=== PATIENT | male | born 1945 | race Caucasian/White ===

== ENCOUNTER → 2017-04-17 | Outpatient (CLI) | payer MEDICARE, BC ==
--- NOTE | 2017-04-18 08:11 | US ---
EXAMINATION TYPE: US venous doppler duplex LE LT DATE OF EXAM: 04/17/2017 4:20 PM COMPARISON: NONE CLINICAL HISTORY: Pain and Swelling Lt Lower Limb M79.662 R22.42. History of pulmonary embolism, ro ent currently taking blood thinners SIDE PERFORMED: Left TECHNIQUE: The lower extremity deep venous system is examined utilizing real time linear array sonog nicola with graded compression, doppler sonography and color-flow sonography. VESSELS IMAGED: External Iliac Vein (EIV) Common Femoral Vein Deep Femoral Vein Greater Saphenous Vein * Femoral Vein Popliteal Vein Small Saphenous Vein * Proximal Calf Veins (* superficial vessels) Left Leg: Negative for DVT IMPRESSION: Left lower extremity negative for deep venous thrombosis based on ultrasound findings.
== END | disposition home or self-care (01) ==
LOC: RADUSWWP 15:59
PROVIDERS: ATTEND Internal Medicine
DX: M79.662 Pain in left lower leg (principal); R22.42 Localized swelling, mass and lump, left lower limb

== ENCOUNTER → 2017-04-25 | Outpatient (CLI) | payer MEDICARE, BC ==
--- NOTE | 2017-04-25 17:02 | CT ---
EXAMINATION TYPE: CT abdomen pelvis wo con DATE OF EXAM: 04/25/2017 COMPARISON: 10/07/2012 HISTORY: Generalized abdominal pain with nausea and vomiting x [address] DLP: 397.60 mGycm Automated exposure control for dose reduction was used. TECHNIQUE: Helical acquisition of images was performed from the lung bases through the pelvis. FINDINGS: Lung bases are clear. There is no pleural effusion. Liver shows no focal defect. Spleen appears normal. There is no sign of a pancreatic mass. Bile ducts are not dilated. Gallbladder appears absent. Inferior vena cava filter is noted. There is no adrenal mass. Kidneys have normal size and contour. There is no hydronephrosis. There is no retroperitoneal adenopathy. There is a faint 2 mm calcification in the posterior left kidney. There is no ascites. Bladder distends smoothly. I see no intestinal wall thickening. There are no dil ated loops. Appendix is not seen. There is no sign of appendicitis. I see no bony destructive process . IMPRESSION: ATHEROSCLEROTIC VASCULAR DISEASE. NO EVIDENCE OF RENAL OBSTRUCTION. SMALL NONOBSTRUCTING LEFT RENAL C ALCULUS. NO ADVERSE CHANGE COMPARED TO OLD EXAM.
== END | disposition home or self-care (01) ==
LOC: RADCTMAIN 15:59
PROVIDERS: ATTEND Internal Medicine Hematology & Oncology
DX: N20.0 Calculus of kidney (principal); I70.90 Unspecified atherosclerosis
CPT/HCPCS: 74176

== ENCOUNTER → 2018-06-05 | Outpatient (CLI) | payer MEDICARE, BC ==
[2018-06-05 13:39] LABS: Appearance,Urine Clear (Clear); Bilirubin,Urine Negative (Negative); Blood,Urine Trace (Negative); Color,Urine Light Yellow; Glucose,Urine (UA) Negative (Negative); Ketones,Urine Negative (Negative); Leukocyte Esterase,Urine Negative (Negative); Nitrite,Urine Negative (Negative); PH, Urine 5.5 (5.0-8.0); Protein,Urine Negative (Negative); RBC,Urine 1 /hpf (0-5); Specific Gravity,Urine 1.008 (1.001-1.035); Urobilinogen,Urine <2.0 mg/dL (<2.0); WBC,Urine <1 /hpf (0-5)
[2018-06-05 13:57] LABS: HCT 41.8 % (39.0-53.0); HGB 13.3 gm/dL (13.0-17.5); Hypochromasia Moderate; MCH 30.3 pg (25.0-35.0); MCHC 31.9 g/dL (31.0-37.0); MCV 94.9 fL (80.0-100.0); Poikilocytosis Slight; RDW 15.8 % (11.5-15.5); WBC 5.3 k/uL (3.8-10.6)
[2018-06-05 13:58] LABS: Platelet Count 92 k/uL (150-450)
[2018-06-05 19:05] LABS: Iron Saturation 19.22 (15.00-50.00)
[2018-06-05 19:12] LABS: Vitamin D 25 Hydroxy 77.7 ng/mL (30.0-100.0)
[2018-06-05 19:46] LABS: Parathyroid Hormone Intact 89.3 pg/mL (14.0-72.0)
[2018-06-05 19:54] LABS: Albumin 3.8 g/dL (3.80-4.90); Albumin/Globulin Ratio 1.9 (1.20-2.10); Anion Gap 7.2 mmol/L (4.00-12.00); Calcium 8.9 mg/dL (8.7-10.3); Carbon Dioxide 23.8 mmol/L (21.6-31.8); Magnesium 1.8 mg/dL (1.5-2.4); Phosphorus 3.7 mg/dL (2.4-5.1); Potassium 5.2 mmol/L (3.5-5.5); Total Bilirubin 0.3 mg/dL (0.3-1.2); Total Protein 5.8 g/dL (6.2-8.2)
[2018-06-05 21:59] LABS: Hemoglobin A1C 5.6 % (4.0-6.0)
== END | disposition home or self-care (01) ==
LOC: LABWHC1 12:23
PROVIDERS: ATTEND Nurse Practitioner Family
DX: D50.9 Iron deficiency anemia, unspecified (principal); I12.9 Hypertensive chronic kidney disease with stage 1 through stage 4 chronic kidney disease, or unspecified chronic kidney disease; E11.22 Type 2 diabetes mellitus with diabetic chronic kidney disease; N18.3 Chronic kidney disease, stage 3 (moderate); N25.81 Secondary hyperparathyroidism of renal origin; E11.21 Type 2 diabetes mellitus with diabetic nephropathy; N39.0 Urinary tract infection, site not specified; R25.1 Tremor, unspecified; M10.00 Idiopathic gout, unspecified site; E03.9 Hypothyroidism, unspecified; E55.9 Vitamin D deficiency, unspecified; F12.19 Cannabis abuse with unspecified cannabis-induced disorder
CPT/HCPCS: 36415; 80053; 81001; 82306; 82728; 83036; 83540; 83550; 83735; 83970; 84100; 84443; 84550; 85027

== ENCOUNTER → 2018-09-07 | Outpatient (CLI) | payer OTHER ==
[2018-09-07 15:47] LABS: Appearance,Urine Clear (Clear); Bilirubin,Urine Negative (Negative); Blood,Urine Trace (Negative); Color,Urine Light Yellow; Glucose,Urine (UA) Negative (Negative); Ketones,Urine Negative (Negative); Leukocyte Esterase,Urine Negative (Negative); Nitrite,Urine Negative (Negative); Protein,Urine Negative (Negative); RBC,Urine 3 /hpf (0-5); Specific Gravity,Urine 1.008 (1.001-1.035); Urobilinogen,Urine <2.0 mg/dL (<2.0)
[2018-09-07 15:58] LABS: Anisocytosis Slight; Basophils % (A) 1 %; Eosinophils # (A) 0.3 k/uL (0-0.7); Eosinophils % (A) 8 %; HCT 33.2 % (39.0-53.0); HGB 10.7 gm/dL (13.0-17.5); Hypochromasia Slight; Lymphocytes # (A) 1.2 k/uL (1.0-4.8); Lymphocytes % (A) 28 %; MCH 30.7 pg (25.0-35.0); MCHC 32.3 g/dL (31.0-37.0); Mean Platelet Volume 6.9; Monocytes # (A) 0.2 k/uL (0-1.0); Monocytes % (A) 5 %; Neutrophils # (A) 2.3 k/uL (1.3-7.7); Neutrophils % (A) 56 %; Platelet Count 115 k/uL (150-450); RDW 17.4 % (11.5-15.5); WBC 4.1 k/uL (3.8-10.6)
[2018-09-08 02:16] LABS: Iron Saturation 26.69 (15.00-50.00)
[2018-09-08 02:23] LABS: Albumin 3.8 g/dL (3.80-4.90); Anion Gap 8.9 mmol/L (4.00-12.00); Calcium 8.6 mg/dL (8.7-10.3); Carbon Dioxide 21.1 mmol/L (21.6-31.8); Magnesium 1.9 mg/dL (1.5-2.4); Phosphorus 3.7 mg/dL (2.4-5.1); Potassium 4.8 mmol/L (3.5-5.5); Uric Acid 6.3 mg/dL (3.7-8.7)
[2018-09-08 02:33] LABS: Parathyroid Hormone Intact 133.9 pg/mL (14.0-72.0)
[2018-09-08 04:25] LABS: Creatinine,Urine Random 48.4 mg/dL
[2018-09-08 04:46] LABS: Total Protein,Urine Random 15.1 mg/dL (0.0-13.5)
== END ==
LOC: LABWHC1 13:58
PROVIDERS: ATTEND Internal Medicine Nephrology
DX: N25.81 Secondary hyperparathyroidism of renal origin (principal); N39.0 Urinary tract infection, site not specified; M10.9 Gout, unspecified; N18.4 Chronic kidney disease, stage 4 (severe); D63.1 Anemia in chronic kidney disease; R80.9 Proteinuria, unspecified
CPT/HCPCS: 36415; 80048; 81001; 82040; 82306; 82570; 82728; 83540; 83550; 83735; 83970; 84100; 84156; 84550; 85025

== ENCOUNTER 2019-02-28 14:48 | Emergency (ER) | payer BC, MEDICARE, OTHER ==
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
[2019-02-28 15:56] LABS: INR 4.1 (<1.2); Partial Thromboplastin Time 58.3 sec (22.0-30.0); Prothrombin Time 39.1 sec (9.0-12.0)
--- NOTE | 2019-02-28 16:07 | US ---
EXAMINATION TYPE: US venous doppler duplex LE LT DATE OF EXAM: 02/28/2019 3:54 PM COMPARISON: NONE CLINICAL HISTORY: Pain. Left leg is hard and swollen. SIDE PERFORMED: Left TECHNIQUE: The lower extremity deep venous system is examined utilizing real time linear array sonog nicola with graded compression, doppler sonography and color-flow sonography. VESSELS IMAGED: External Iliac Vein (EIV) Common Femoral Vein Deep Femoral Vein Greater Saphenous Vein * Femoral Vein Popliteal Vein Small Saphenous Vein * Proximal Calf Veins (* superficial vessels) Patient is on coumadin and has a rey filter. Left Leg: No evidence for DVT. In the distal FV, the flow is pulsatile. The vessel will not compress. There is a large complex area just anterior to the vessels without flow that measures 8.1 x 4.2 x 4.2 cm. IMPRESSION: The examination appears negative for deep venous thrombosis within the left lower extremi ty however there is incomplete compression of the left femoral vein distally as there is a complex fl uid collection anterior to this measuring up to 8.1 x 4.2 x 4.2 cm. This is an avascular fluid collec tion and favored to represent,. However if there is no recent history of trauma or if this is enlargi ng clinically MRI with contrast would be recommended to exclude bleeding sarcoma.
--- NOTE | 2019-02-28 16:16 | XR ---
EXAMINATION TYPE: XR femur LT DATE OF EXAM: 02/28/2019 CLINICAL HISTORY: Left femur pain with left lower extremity pain and swelling TECHNIQUE: Two views of the left femur are obtained. COMPARISON: None FINDINGS: There is no acute fracture or dislocation seen in the left femur. The left hip and knee j oints appear aligned. There is mild left femoral acetabular arthropathy with cephalad joint space latoya rowing and acetabular roof sclerosis. Arthroplasty of the left knee is seen. Arthroplasty remains ali gned. The overlying soft tissue appears unremarkable. IMPRESSION: There is no acute fracture or dislocation in the left femur.
--- NOTE | 2019-02-28 16:20 | XR ---
EXAMINATION TYPE: XR tibia fibula LT DATE OF EXAM: 02/28/2019 CLINICAL HISTORY: Left lower extremity pain TECHNIQUE: Two views of the left leg are obtained. COMPARISON: None. FINDINGS: There is no acute fracture or dislocation seen in the left tibia or fibula. There is a tot al left knee arthroplasty that remains aligned. Mild heterotopic ossification is seen. There is perio steal reaction of the diaphysis of the tibia laterally. Old fracture deformity of the distal fibula. Mild diffuse soft tissue swelling. Small heel spur of the calcaneus. The overlying soft tissue appea rs unremarkable. IMPRESSION: 1. No acute fracture or dislocation seen in the left tibia or fibula. 2. Old fracture forming the distal left fibula is seen. Additionally there is periosteal reaction phillip ng the diaphysis of the lateral left fibula. This may also be posttraumatic in sequela of prior injur y. Other considerations are for chronic infection such as osteomyelitis (less likely given the long s egment involvement) or much less likely neoplasm.
[2019-02-28 17:28] VITALS: BP 101/62; PULSE 76; RESP 18; TEMP 97.8
== END 2019-02-28 17:28 | disposition home or self-care (01) ==
LOC: EC 14:48
DX: S80.12XA Contusion of left lower leg, initial encounter (principal); R79.1 Abnormal coagulation profile; I25.10 Atherosclerotic heart disease of native coronary artery without angina pectoris; E78.5 Hyperlipidemia, unspecified; I12.9 Hypertensive chronic kidney disease with stage 1 through stage 4 chronic kidney disease, or unspecified chronic kidney disease; N18.3 Chronic kidney disease, stage 3 (moderate); Z87.81 Personal history of (healed) traumatic fracture; Z89.512 Acquired absence of left leg below knee; Z88.8 Allergy status to other drugs, medicaments and biological substances; Z91.048 Other nonmedicinal substance allergy status; Z79.01 Long term (current) use of anticoagulants; Z79.82 Long term (current) use of aspirin; Z79.890 Hormone replacement therapy; Z79.899 Other long term (current) drug therapy; Z86.711 Personal history of pulmonary embolism; Z96.652 Presence of left artificial knee joint; Z98.1 Arthrodesis status; Z91.81 History of falling; X58.XXXA Exposure to other specified factors, initial encounter
CPT/HCPCS: 36415; 85610; 85730; 99284

== ENCOUNTER 2020-06-13 15:28 | Emergency (ER) | payer OTHER ==
[2020-06-13 15:34] VITALS: RESP 18
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
[2020-06-13 16:31] LABS: INR 2.5 (<1.2); Partial Thromboplastin Time 39.1 sec (22.0-30.0); Prothrombin Time 24.8 sec (9.0-12.0)
--- NOTE | 2020-06-13 16:55 | CT ---
EXAMINATION TYPE: CT brain alexa aquino con DATE OF EXAM: 06/13/2020 COMPARISON: 06/10/2018. HISTORY: Fall with facial brusing. CT DLP: 1210.6 mGycm Automated exposure control for dose reduction was used. TECHNIQUE: CT scan of the head and cervical spine are performed without contrast. FINDINGS: There is no acute intracranial hemorrhage, mass effect, or midline shift identified. The ventricles and sulci are within normal limits in size. The globes are intact and the visualized sin uses are clear. No calvarial fracture. There is mild right frontal scalp hematoma. Cervical spine is visualized in its entirety from C1 through upper thoracic levels and demonstrates s atisfactory alignment without evidence of acute fracture or dislocation. Prevertebral soft tissue ap pears within normal limits. The C1-C2 articulation is unremarkable. Prior C3-C6 ACDF is noted. Sakshi re C6-T1 spondylosis seen. IMPRESSION: 1. There is no acute fracture or dislocation evident in the cervical spine. 2. No acute intracranial hemorrhage, mass effect, or midline shift is seen. 3. Right frontal scalp hematoma.
--- NOTE | 2020-06-13 16:59 | CT ---
EXAMINATION TYPE: CT facial bones wo con DATE OF EXAM: 06/13/2020 COMPARISON: None available. HISTORY: Fall with facial brusing. CT DLP: 1210.6 mGycm Automated exposure control for dose reduction was used. TECHNIQUE: CT scan of the facial bones is performed without contrast, axial images are obtained, alfred nal reformatted images are also reviewed. FINDINGS: There is no acute fracture or dislocation of the middle osseous structures. The maxilla, ma ndible, zygomatic arches and pterygoid plates are grossly intact. The bilateral orbits are also gross ly intact. The paranasal sinuses, sinuses are adequately aerated. There is mild right frontal scalp hematoma. The remaining soft tissues are otherwise unremarkable. IMPRESSION: No acute fracture of the facial bones.
[2020-06-13] MEDS ORDERED: IBUPROFEN 600 MG TAB PO STA (17:05)
[2020-06-13 17:43] VITALS: BP 130/66; PULSE 65; TEMP 97
== END 2020-06-13 17:43 | disposition home or self-care (01) ==
LOC: EC 15:28
DX: S00.83XA Contusion of other part of head, initial encounter (principal); S06.0X9A Concussion with loss of consciousness of unspecified duration, initial encounter; I12.9 Hypertensive chronic kidney disease with stage 1 through stage 4 chronic kidney disease, or unspecified chronic kidney disease; N18.30 Chronic kidney disease, stage 3 unspecified; E78.5 Hyperlipidemia, unspecified; Z79.899 Other long term (current) drug therapy; Z79.82 Long term (current) use of aspirin; Z79.890 Hormone replacement therapy; Z79.01 Long term (current) use of anticoagulants; Z91.09 Other allergy status, other than to drugs and biological substances; Z88.8 Allergy status to other drugs, medicaments and biological substances; Z89.511 Acquired absence of right leg below knee; Z86.711 Personal history of pulmonary embolism; Z96.652 Presence of left artificial knee joint; W01.198A Fall on same level from slipping, tripping and stumbling with subsequent striking against other object, initial encounter; Y93.01 Activity, walking, marching and hiking; Y92.009 Unspecified place in unspecified non-institutional (private) residence as the place of occurrence of the external cause
CPT/HCPCS: 36415; 70450; 70486; 72125; 85610; 85730; 99284

== ENCOUNTER 2021-01-03 15:17 | Inpatient (IN) | payer OTHER, MEDICARE ==
[2021-01-03] MEDS ORDERED: SODIUM CHLORIDE 0.9% 1,000 ML IV STA (15:25)
[2021-01-03 15:31] LABS: Glucose,Whole Blood 151 mg/dL (75-99)
[2021-01-03 15:44] LABS: Anisocytosis Slight; Appearance,Urine Clear (Clear); Basophils % (A) 1 %; Bilirubin,Urine Negative (Negative); Blood,Urine Negative (Negative); Color,Urine Colorless; Eosinophils # (A) 0.3 k/uL (0-0.7); Eosinophils % (A) 6 %; Glucose,Urine (UA) Negative (Negative); HCT 27.9 % (39.0-53.0); HGB 9.4 gm/dL (13.0-17.5); Ketones,Urine Negative (Negative); Leukocyte Esterase,Urine Negative (Negative); Lymphocytes # (A) 1.3 k/uL (1.0-4.8); Lymphocytes % (A) 24 %; MCH 32.6 pg (25.0-35.0); MCHC 33.6 g/dL (31.0-37.0); MCV 96.9 fL (80.0-100.0); Macrocytosis Slight; Mean Platelet Volume 6.8; Monocytes # (A) 0.3 k/uL (0-1.0); Monocytes % (A) 6 %; Neutrophils # (A) 3.3 k/uL (1.3-7.7); Neutrophils % (A) 62 %; Nitrite,Urine Negative (Negative); Platelet Count 125 k/uL (150-450); Protein,Urine Negative (Negative); RBC 2.88 m/uL (4.30-5.90); RDW 16.5 % (11.5-15.5); Specific Gravity,Urine 1.007 (1.001-1.035); Urobilinogen,Urine <2.0 mg/dL (<2.0); WBC 5.3 k/uL (3.8-10.6)
[2021-01-03 15:54] LABS: Amphetamine Screen,Urine Not Detected (NotDetected); Barbiturate Screen,Urine Not Detected (NotDetected); Benzodiazepines Screen,Urine Detected (NotDetected); Cocaine Screen,Urine Not Detected (NotDetected); Methadone Screen, Urine Not Detected (NotDetected); Opiate Screen,Urine Not Detected (NotDetected); Oxycodone Screen, Urine Not Detected (NotDetected); Phencyclidine Screen,Urine Not Detected (NotDetected); Tricyclic Antidepressant,Urine Not Detected (NotDetected); Urn Cannabinoid Scrn Not Detected (NotDetected)
[2021-01-03 15:55] LABS: INR 2.3 (<1.2); Prothrombin Time 22.5 sec (9.0-12.0)
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
--- NOTE | 2021-01-03 16:15 | CT ---
EXAMINATION TYPE: CT brain alexa wo con DATE OF EXAM: 01/03/2021 COMPARISON: 06/13/2020 HISTORY: falls CT DLP: 1480.1 mGycm, Automated exposure control for dose reduction was used. CONTRAST: Patient injected with 0 mL of Isovue 300. CT of the brain is performed utilizing 3 mm thick sections through the posterior fossa and 3 mm thick sections through the remaining calvarium. Study is performed within 24 hours of arrival to the hospital. No abnormal hyperdensity is present to suggest an acute intracranial hemorrhage. No mass lesion is evident. No acute infarcts are evident. Ventricles and sulci are appropriate for the patient age. Paranasal sinuses and mastoid air cells within the [id number] are clear. IMPRESSIONS: 1. No acute intracranial process CT brain CT cervical spine. COMPARISON: None CT of the cervical spine is performed in the axial plane at 2 mm thick sections. Reconstructed image s in the coronal, and sagittal plane are reviewed on the computer. No acute fractures are evident. Vertebral body alignment is straightened. Anterior for fusion is present C3-C6. Advanced degenerative disc changes are present C6-7 and C7-T1. Vertebral body heights are preserved. Anterior vertebral body spurring is present see 6 C7 No spinal canal stenosis is evident. No neural foraminal stenosis is evident. IMPRESSIONS: 1. No acute osseous abnormality is evident. Postsurgical changes from anterior fusion. Advanced degen erative disc changes are in the lower cervical spine. Findings are stable over the interval.
[2021-01-03 16:18] LABS: ALT 16 U/L (4-49); AST 24 U/L (17-59); African American GFR (CKD) 17 (>60 ml/min/1.73 sqM); Albumin 3.5 g/dL (3.5-5.0); Alkaline Phosphatase 62 U/L (38-126); Anion Gap 10 mmol/L; Blood Urea Nitrogen 81 mg/dL (9-20); Calcium 8.8 mg/dL (8.4-10.2); Carbon Dioxide 20 mmol/L (22-30); Chloride 111 mmol/L (98-107); Glucose 126 mg/dL (74-99); Non-African American GFR(CKD) 15 (>60 ml/min/1.73 sqM); Sodium 141 mmol/L (137-145); Total Bilirubin 0.2 mg/dL (0.2-1.3); Total Protein 5.8 g/dL (6.3-8.2)
[2021-01-03] MEDS ORDERED: SODIUM CHLORIDE 0.9% 1,000 ML IV ONE (16:21)
[2021-01-03 16:23] LABS: Alcohol <10 mg/dL
[2021-01-03] MEDS ORDERED: NALOXONE 0.4 MG/ML 1 ML VIAL IV PRN (17:05)
[2021-01-03] MEDS: SODIUM CHLORIDE 0.9% 1,000 ML IV SCH (17:12)
--- NOTE | 2021-01-03 17:38 | XR ---
EXAMINATION TYPE: XR chest 1V portable DATE OF EXAM: 01/03/2021 COMPARISON: 10/04/2019 HISTORY: Trauma. Pain. TECHNIQUE: Single view FINDINGS: There is no heart failure nor confluent pneumonic infiltrate. Costophrenic angles are clear . There are no hilar masses. Thoracic aorta is atheromatous. There are chest leads. IMPRESSION: No active cardiopulmonary disease. No change.
[2021-01-04] MEDS ORDERED: NITROGLYCERIN SL TABS 0.4 MG TAB SUBLINGUAL PRN (01:10)
[2021-01-04] MEDS ORDERED: ALBUTEROL NEBULIZED 2.5 MG/3 ML INHALATION PRN (01:10)
[2021-01-04] MEDS ORDERED: lisinopriL 5 MG TAB PO SCH (02:00)
[2021-01-04] MEDS: ASPIRIN 81 MG PO SCH ×2 (02:17→22:53)
[2021-01-04] MEDS: DOCUSATE 100 MG CAP PO SCH ×2 (02:17→22:53)
[2021-01-04] MEDS: MULTIVITAMINS, THERA 1 EACH TAB PO SCH ×2 (02:17→22:53)
[2021-01-04] MEDS: amLODIPine 5 MG TAB PO SCH ×2 (02:17→20:58)
[2021-01-04] MEDS: METOPROLOL TARTRATE 50 MG TAB PO SCH ×3 (02:18→22:57)
[2021-01-04] MEDS: PANTOPRAZOLE 40 MG TABLET PO SCH ×3 (02:18→22:55)
[2021-01-04] MEDS: MIRTAZAPINE 15 MG TAB PO SCH ×2 (02:18→22:55)
[2021-01-04] MEDS: lamoTRIgine 100 MG TAB PO SCH ×4 (02:19→22:56)
[2021-01-04] MEDS: ALPRAZolam 0.5 MG TAB PO SCH ×5 (02:21→22:56)
[2021-01-04] MEDS: WARFARIN 5 MG TAB PO SCH ×2 (02:21→17:22)
[2021-01-04] MEDS: SODIUM CHLORIDE 0.9% 1,000 ML IV SCH ×3 (02:41→12:40)
[2021-01-04] MEDS: LEVOTHYROXINE 25 MCG TAB PO SCH (07:09)
[2021-01-04] MEDS: allopurinoL 100 MG TAB PO SCH ×2 (07:09→17:22)
[2021-01-04] MEDS ORDERED: NON FORMULARY DRUG (Omega-3 Fatty Acids [Omega-3] 1,000 MG Capsule) PO SCH (08:00)
[2021-01-04] MEDS ORDERED: FUROSEMIDE 40 MG TAB PO SCH (08:00)
[2021-01-04] MEDS: SYMBICORT 160-4.5 MCG INHALER INHALATION SCH ×2 (08:39→17:57)
[2021-01-04] MEDS: PROPRANOLOL 20 MG TAB PO SCH ×3 (08:55→17:22)
[2021-01-04] MEDS: DIGOXIN 125 MCG TAB PO SCH (08:55)
[2021-01-04] MEDS ORDERED: DARBEPOETIN ALFA 60 MCG/0.3 ML SYRINGE SQ SCH (09:00)
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
[2021-01-04] MEDS: EZETIMIBE 10 MG TAB PO SCH (12:39)
[2021-01-04] MEDS: SODIUM BICARBONATE TAB 650 MG TAB PO SCH ×2 (12:39→20:58)
[2021-01-04] MEDS: ISOSORBIDE MONONITRATE ER 60 MG TAB.ER.24H PO SCH (12:39)
[2021-01-04] MEDS: DOXAZOSIN 2 MG TAB PO SCH (12:39)
--- NOTE | 2021-01-04 13:23 | US ---
EXAMINATION TYPE: US kidneys/renal and bladder DATE OF EXAM: 01/04/2021 COMPARISON: CT abdomen and pelvis April 25, 2017 CLINICAL HISTORY: hubert. EXAM MEASUREMENTS: Right Kidney: 11.4 x 4.2 x 4.1 cm Left Kidney: 11.1 x 5.6 x 4.5cm Technically difficult due to overlying bowel gas/rib shadows. Somewhat limited visualization. Right Kidney: wnl Left Kidney: cyst measuring 0.9 x 0.9 x 1.0 cm Bladder: wnl There is no evidence for hydronephrosis at this point in time. No nephrolithiasis is seen. No kyaw rning solid or cystic masses are identified on images saved. The urinary bladder is anechoic. Bilat eral ureteral jets are not seen. Cortical thinning left kidney. IMPRESSION: No hydronephrosis is noted bilaterally.
--- NOTE | 2021-01-04 14:04 | US ---
EXAMINATION TYPE: US carotid duplex BILAT DATE OF EXAM: 01/04/2021 COMPARISON: NONE CLINICAL HISTORY: syncope. dizziness EXAM MEASUREMENTS: RIGHT: Peak Systolic Velocity (PSV) cm/sec ----- Right CCA: 73.2 ----- Right ICA: 92.2 ----- Right ECA: 274.5 ICA/CCA ratio: 1.3 RIGHT: End Diastole cm/sec ----- Right CCA: 15.6 ----- Right ICA: 25.2 ----- Right ECA: 9.4 LEFT: Peak Systolic Velocity (PSV) cm/sec ----- Left CCA: 79.0 ----- Left ICA: 130.7 ----- Left ECA: 141.7 ICA/CCA ratio: 1.7 LEFT: End Diastole cm/sec ----- Left CCA: 20.8 ----- Left ICA: 35.4 ----- Left ECA: 0.0 VERTEBRALS (direction of flow): Right Vertebral: Antegrade Left Vertebral: Antegrade Rhythm: Normal stoddard scale images show mild to moderate peripheral plaque centered bilateral carotid bulb level great er on the left. Increased peak systolic velocity left internal carotid artery without abnormal ratio lower increased end diastolic velocity. IMPRESSION: [id number] atherosclerotic changes bilaterally. Stenosis approaching but under 50% on the left felt present. No greater than 50% stenosis clearly identified bilaterally. Criteria for Assigning % of Stenosis / Diameter reduction (Estimation based on the indirect measurements of the internal carotid artery velocities (ICA PSV). 1. Normal (no stenosis)=ICA PSV < 125 cm/s: ratio < 2.0: ICA EDV<40 cm/s. 2. Less than 50% stenosis=ICA PSV < 125 cm/s: ratio < 2.0: ICA EDV<40 cm/s. 3. 50 to 69% stenosis=ICA PSV of 125 to 230 cm/s: ration 2.0 ? 4.0: ICA EDV 40-100 cm/s. 4. Greater than 70% stenosis to near occlusion= ICA PSV > 230 cm/s: ratio > 4.0: ICA EDV > 100 cm/s. 5. Near occlusion= ICA PSV velocities may be low or undetectable: variable ratio and ICA EDV. 6. Total occlusion=unable to detect flow.
[2021-01-04] MEDS: NIACIN TR 500 MG CAPLET PO SCH (17:22)
[2021-01-04] MEDS: METOCLOPRAMIDE 5 MG TAB PO SCH (17:22)
[2021-01-04 20:27] LABS: % Iron Saturation 24.32 (15.00-50.00)
[2021-01-04 20:52] LABS: Ferritin 198.6 ng/mL (22.0-322.0)
[2021-01-04 20:54] LABS: Folate, Serum 12.1 ng/mL
[2021-01-05] MEDS: SODIUM CHLORIDE 0.9% 1,000 ML IV SCH ×2 (06:19→19:04)
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
[2021-01-05] MEDS: ALPRAZolam 0.5 MG TAB PO SCH ×4 (08:36→21:01)
[2021-01-05] MEDS: PROPRANOLOL 20 MG TAB PO SCH ×3 (08:37→17:39)
[2021-01-05] MEDS: DIGOXIN 125 MCG TAB PO SCH (08:37)
[2021-01-05] MEDS: lamoTRIgine 100 MG TAB PO SCH ×3 (08:37→21:01)
[2021-01-05] MEDS: LEVOTHYROXINE 25 MCG TAB PO SCH (08:37)
[2021-01-05] MEDS: PANTOPRAZOLE 40 MG TABLET PO SCH ×2 (08:37→21:01)
[2021-01-05] MEDS: allopurinoL 100 MG TAB PO SCH ×2 (08:37→17:39)
[2021-01-05] MEDS: SODIUM BICARBONATE TAB 650 MG TAB PO SCH ×2 (08:37→21:02)
[2021-01-05 08:39] LABS: INR 2.2 (<1.2); Prothrombin Time 21.5 sec (9.0-12.0)
[2021-01-05] MEDS: SYMBICORT 160-4.5 MCG INHALER INHALATION SCH (08:59)
--- NOTE | 2021-01-05 10:40 | P.PN ---
Subjective Progress Note Date: 01/05/21 Juarez Haider is a 75-year-old male who presented to [facility] after having a syncopal episode at home. Details are obtained from his at the bedside she stated that patient was sitting on a chair, bending forward, his thought that he was sleeping subsequently he fell forward to the floor, his was able to arouse him for few seconds and then he was unconscious for several minutes, his called EMS and patient was brought into emergency room. Patient was evaluated in the emergency room vital examination on presentation revealed a temperature of 97.5 pulse 61 respiration 18 blood pressure 135/80 pulse ox 100% on 2 L nasal cannula laboratory data reveals a white blood count of 5.4 hemoglobin 9.4 platelet count 125 INR was 2.3 sodium 141 potassium 5.0 BUN 81 creatinine 3.7 computed tomography scan of the brain revealed no acute intracranial process no evidence of intracranial bleeding, computed tomography scan of the cervical spine did not reveal any acute osseous abnormality there was evidence of previous surgery with anterior fusion chest x-ray revealed no ac tive cardiopulmonary disease and EKG revealed sinus rhythm with first-degree AV block otherwise normal EKG. Patient was admitted to telemetry floor for further evaluation and treatment. On 01/04/2021atient was seen and examined on the medical floor, he is alert and oriented x 3 in no distress, he denies any complaints there is no fever or chills no headache or dizziness no chest pain no shortness of breath no palpitation no cough no nausea or vomiting no abdominal pain no diarrhea no blood in the stools no burning with urination no frequency or urgency and no hematuria, at this time will obtain echocardiogram and carotid Doppler will consult cardiology and neurology in regard to syncope Will consult nephrology in regard to acute on chronic renal failure will follow closely will recheck labs in a.m. On 01/05/2021 patient is alert and oriented 3 resting comfortably in bed. at bedside. Patient reports he feels significantly improved. Awaiting labs. EEG has been ordered per neurology. 2-D echo pending. This time patient denies chest pain or shortness of breath. Patient denies nausea vomiting or diarrhea. Patient denies any urinary burning or frequency Objective - Vital Signs Vital signs: Vital Signs Temp 97.5 F L 01/05/21 07:41 Pulse 62 01/05/21 08:25 Resp 16 01/05/21 08:25 BP 129/72 01/05/21 07:41 Pulse Ox 99 01/05/21 07:41 Intake & Output 01/04/21 01/05/21 01/05/21 18:59 06:59 18:59 Output Total 400 Balance -400 Output: Urine 400 Post Void Residual 0 Other: # Voids 2 - Exam In general patient is alert and oriented ?-3 in no distress HEENT head normocephalic and atraumatic Neck is supple no JVD no goiter no lymphadenopathy no carotid bruit Chest examination is clear to auscultation no crackles no wheezing Cardiac exam reveals regular heart sounds S1 and S2 no gallops no murmurs Abdomen is soft nontender no organomegaly with normal bowel sounds Extremity exam reveals no edema no cyanosis or clubbing Neurological examination reveals no gross focal deficits - Labs CBC & Chem 7: 01/03/21 15:28 01/03/21 15:28 Labs: Abnormal Lab Results - Last 24 Hours (Table) 01/05/21 Range/Units 08:07 PT 21.5 H (9.0-12.0) sec INR 2.2 H (<1.2) Assessment and Plan Plan: Episodes of syncope, with loss of consciousness for several minutes per patient's Fall with head trauma no evidence of intracranial bleeding Acute on chronic kidney failure Hyperkalemia on presentation Underlying history of hypertension Underlying history of hypothyroidism Underlying history of hyperlipidemia Underlying history of gout 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
--- NOTE | 2021-01-05 11:01 | P.PN ---
Subjective Patient is seen in follow-up for acute kidney injury on chronic kidney disease. Diuretics held. Maintained on IV fluids. Oral intake good. No vomiting or diarrhea. Has been voiding. Vital signs are stable. General: The patient appeared well nourished and normally developed. HEENT: Head exam is unremarkable. Neck is without jugular venous distension. LUNGS: Breath sounds decreased. HEART: Rate and Rhythm are regular. ABDOMEN: Soft, no distention. EXTREMITITES: No edema. Chronic changes noted. Right BKA. Objective - Vital Signs Vital signs: Vital Signs Temp 97.5 F L 01/05/21 07:41 Pulse 62 01/05/21 08:25 Resp 16 01/05/21 08:25 BP 129/72 01/05/21 07:41 Pulse Ox 99 01/05/21 07:41 Intake & Output 01/04/21 01/05/21 01/05/21 18:59 06:59 18:59 Output Total 400 Balance -400 Output: Urine 400 Post Void Residual 0 Other: # Voids 2 - Labs CBC & Chem 7: 01/03/21 15:28 01/03/21 15:28 Labs: Abnormal Lab Results - Last 24 Hours (Table) 01/05/21 Range/Units 08:07 PT 21.5 H (9.0-12.0) sec INR 2.2 H (<1.2) Assessment and Plan Plan: Assessment: 1. Acute kidney injury mostly prerenal secondary to hypovolemia from diuresis. Creatinine 3.7 on admission. No hydronephrosis noted on kidney ultrasound. 2. Chronic kidney disease stage IV secondary to nephrosclerosis and diabetic kidney disease. Baseline creatinine 2-2.4. 3. Hypertension with chronic kidney disease. Controlled. 4. Chronic kidney disease mineral bone disease maintained on calcitriol. 5. Anemia of chronic kidney disease maintained on Aranesp. Iron replete. 6. Metabolic acidosis secondary to acute kidney injury. Maintained on oral bicarb. 7. Diabetes mellitus. Plan: Maintain IV fluids. Hold diuretics. Hold lisinopril. Continue to monitor renal function and urine output. Hold amlodipine for systolic blood pressure less than 125. Morning labs pending.
[2021-01-05 11:55] LABS: Basophils # (A) 0.02 X 10*3/uL (0.00-0.10); Basophils % (A) 0.3 %; Eosinophils # (A) 0.23 X 10*3/uL (0.04-0.35); HCT 31.2 % (39.6-50.0); HGB 9.6 g/dL (13.0-17.0); Lymphocytes # (A) 1.28 X 10*3/uL (0.90-5.00); Lymphocytes % (A) 22.2 %; MCH 31.7 pg (27.0-32.0); MCHC 30.8 g/dL (32.0-37.0); Mean Platelet Volume 8.9 fL (9.5-12.2); Monocytes # (A) 0.41 X 10*3/uL (0.20-1.00); Monocytes % (A) 7.1 %; Neutrophils # (A) 3.77 X 10*3/uL (1.80-7.70); Neutrophils % (A) 65.5 %; Platelet Count 118 X 10*3/uL (140-440); RBC 3.03 X 10*6/uL (4.40-5.60); RDW 15.9 % (11.5-14.5); WBC 5.76 X 10*3/uL (4.50-10.00)
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
[2021-01-05 12:55] LABS: African American GFR (CKD) 26.6 (60.0-200.0); Albumin 4.1 g/dL (3.80-4.90); Albumin/Globulin Ratio 1.78 (1.60-3.17); BUN/Creat Ratio 23.46 Ratio (12.00-20.00); Calcium 8.9 mg/dL (8.7-10.3); Globulin 2.3 g/dL (1.6-3.3); Non-African American GFR(CKD) 22.9 (60.0-200.0); Total Bilirubin 0.3 mg/dL (0.3-1.2); Total Protein 6.4 g/dL (6.2-8.2)
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
--- NOTE | 2021-01-05 14:00 | ECHOF ---
Referral Reason:syncope MEASUREMENTS -------- HEIGHT: 177.8 cm WEIGHT: 80.3 kg BP: 127/66 RVIDd: 3.7 cm (< 3.3) IVSd: 1.4 cm (0.6 - 1.1) LVIDd: 4.3 cm (3.9 - 5.3) LVPWd: 1.4 cm (0.6 - 1.1) IVSs: 1.8 cm LVIDs: 2.8 cm LVPWs: 1.7 cm LA Diam: 3.7 cm (2.7 - 3.8) LAESV Index (A-L): 29.11 ml/m Ao Diam: 3.9 cm (2.0 - 3.7) AV Cusp: 2.4 cm (1.5 - 2.6) MV EXCURSION: 15.965 mm (> 18.000) MV EF SLOPE: 57 mm/s (70 - 150) EPSS: 0.2 cm MV E Mitchell: 1.29 m/s MV DecT: 254 ms MV A Mitchell: 1.08 m/s MV E/A Ratio: 1.20 RAP: 5.00 mmHg RVSP: 32.30 mmHg FINDINGS -------- Sinus rhythm. This was a technically good study. The left ventricular size is normal. There is moderate concentric left ventricular hypertrophy. O verall left ventricular systolic function is normal with, an EF between 60 - 65 %. The right ventricle is mildly enlarged. LA is midly dilated 29-33ml/m2. The right atrium is normal in size. Interatrial and interventricular septum intact. The aortic valve is trileaflet, and appears structurally normal. No aortic stenosis or regurgitation. There is trace to mild mitral regurgitation. Mild tricuspid regurgitation present. Right ventricular systolic pressure is normal at < 35 mmHg. Trace/mild (physiologic) pulmonic regurgitation. The aortic root is dilated measuring 3.9cm. Normal inferior vena cava with normal inspiratory collapse consistent with estimated right atrial pre ssure of 5 mmHg. There is no pericardial effusion. CONCLUSIONS -------- 1. The left ventricular size is normal. 2. There is moderate concentric left ventricular hypertrophy. 3. Overall left ventricular systolic function is normal with, an EF between 60 - 65 %. 4. The right ventricle is mildly enlarged. 5. LA is midly dilated 29-33ml/m2. 6. The aortic valve is trileaflet, and appears structurally normal. No aortic stenosis or regurgitati on. 7. There is trace to mild mitral regurgitation. 8. Mild tricuspid regurgitation present. 9. Trace/mild (physiologic) pulmonic regurgitation. 10. The aortic root is dilated measuring 3.9cm. 11. There is no pericardial effusion. DRESS DRAPER: Andria Jacobsen RDCS
[2021-01-05] MEDS: ISOSORBIDE MONONITRATE ER 60 MG TAB.ER.24H PO SCH (14:35)
[2021-01-05] MEDS: DOXAZOSIN 2 MG TAB PO SCH (14:36)
[2021-01-05] MEDS: EZETIMIBE 10 MG TAB PO SCH (17:39)
[2021-01-05] MEDS: METOCLOPRAMIDE 5 MG TAB PO SCH (17:39)
[2021-01-05] MEDS: METOPROLOL TARTRATE 50 MG TAB PO SCH ×2 (17:39→21:01)
[2021-01-05] MEDS: NIACIN TR 500 MG CAPLET PO SCH (17:39)
[2021-01-05] MEDS: WARFARIN 5 MG TAB PO SCH (17:40)
[2021-01-05] MEDS: MULTIVITAMINS, THERA 1 EACH TAB PO SCH (21:01)
[2021-01-05] MEDS: ASPIRIN 81 MG PO SCH (21:01)
[2021-01-05] MEDS: MIRTAZAPINE 15 MG TAB PO SCH (21:02)
[2021-01-05] MEDS: amLODIPine 5 MG TAB PO SCH (21:02)
[2021-01-05] MEDS: DOCUSATE 100 MG CAP PO SCH (21:02)
[2021-01-06 03:33] VITALS: RESP 16
[2021-01-06] MEDS: SYMBICORT 160-4.5 MCG INHALER INHALATION SCH ×2 (04:52→08:59)
[2021-01-06] MEDS: SODIUM CHLORIDE 0.9% 1,000 ML IV SCH (05:21)
[2021-01-06 06:19] LABS: INR 2.2 (<1.2); Prothrombin Time 21.1 sec (9.0-12.0)
[2021-01-06] MEDS: allopurinoL 100 MG TAB PO SCH (08:29)
[2021-01-06] MEDS: SODIUM BICARBONATE TAB 650 MG TAB PO SCH (08:29)
[2021-01-06] MEDS: DIGOXIN 125 MCG TAB PO SCH (08:30)
[2021-01-06] MEDS: lamoTRIgine 100 MG TAB PO SCH (08:30)
[2021-01-06] MEDS: PANTOPRAZOLE 40 MG TABLET PO SCH (08:30)
[2021-01-06] MEDS: LEVOTHYROXINE 25 MCG TAB PO SCH (08:30)
[2021-01-06] MEDS: PROPRANOLOL 20 MG TAB PO SCH ×2 (08:30→13:29)
[2021-01-06] MEDS: ALPRAZolam 0.5 MG TAB PO SCH ×2 (08:30→13:29)
--- NOTE | 2021-01-06 08:57 | P.PN ---
Subjective Patient is seen in follow-up for acute kidney injury on chronic kidney disease. Diuretics held. Maintained on IV fluids. Oral intake good. No vomiting or diarrhea. Has been voiding. renal function improving. Vital signs are stable. General: The patient appeared well nourished and normally developed. HEENT: Head exam is unremarkable. Neck is without jugular venous distension. LUNGS: Breath sounds decreased. HEART: Rate and Rhythm are regular. ABDOMEN: Soft, no distention. EXTREMITITES: No edema. Chronic changes noted. Right BKA. Objective - Vital Signs Vital signs: Vital Signs Temp 97.8 F 01/06/21 08:00 Pulse 63 01/06/21 08:00 Resp 16 01/06/21 08:00 BP 147/74 01/06/21 08:00 Pulse Ox 99 01/06/21 08:00 Intake & Output 01/05/21 01/06/21 01/06/21 18:59 06:59 18:59 Output Total 350 Balance -350 Output: Urine 350 Other: Voiding Method Urinal # Voids 4 2 - Labs CBC & Chem 7: 01/05/21 08:07 01/05/21 08:07 Labs: Abnormal Lab Results - Last 24 Hours (Table) 01/05/21 01/05/21 01/06/21 Range/Units 08:07 08:07 05:48 RBC 3.03 L (4.40-5.60) X 10*6/uL Hgb 9.6 L (13.0-17.0) g/dL Hct 31.2 L (39.6-50.0) % MCV 103.0 H (80.0-97.0) fL MCHC 30.8 L (32.0-37.0) g/dL RDW 15.9 H (11.5-14.5) % Plt Count 118 L (140-440) X 10*3/uL MPV 8.9 L (9.5-12.2) fL Immature Gran # 0.05 H (0.00-0.04) X 10*3/uL PT 21.1 H (9.0-12.0) sec INR 2.2 H (<1.2) Chloride 119 H (96-109) mmol/L Carbon Dioxide 18.0 L (21.6-31.8) mmol/L BUN 61.0 H (9.0-27.0) mg/dL Creatinine 2.6 H (0.6-1.5) mg/dL Est GFR (CKD-EPI)AfAm 26.6 L (60.0-200.0) Est GFR (CKD-EPI)NonAf 22.9 L (60.0-200.0) BUN/Creatinine Ratio 23.46 H (12.00-20.00) Ratio Glucose 135 H (70-110) mg/dL Assessment and Plan Plan: Assessment: 1. Acute kidney injury mostly prerenal secondary to hypovolemia from diuresis. Creatinine 3.7 on admission - 2.6 yesterday. No hydronephrosis noted on kidney ultrasound. 2. Chronic kidney disease stage IV secondary to nephrosclerosis and diabetic kidney disease. Baseline creatinine 2-2.4. 3. Hypertension with chronic kidney disease. Controlled. 4. Chronic kidney disease mineral bone disease maintained on calcitriol. 5. Anemia of chronic kidney disease maintained on Aranesp. Iron replete. 6. Metabolic acidosis secondary to acute kidney injury and IVFs. Maintained on oral bicarb. 7. Diabetes mellitus. Plan: Maintain IV fluids - decrease rate to 50 cc/hr. Hold diuretics. Hold lisinopril. Continue to monitor renal function and urine output. Hold amlodipine for systolic blood pressure less than 125. Morning labs pending. EF normal. I advised patient to monitor his weight closely at home. To resume Lasix 40 mg once daily gains more than 3 pounds in 1 week duration. Repeat BMP and magnesium level 2-3 days postdischarge. Follow up outpatient in 1 week.
[2021-01-06 09:36] LABS: African American GFR (CKD) 30.8 (60.0-200.0); Albumin 3.7 g/dL (3.80-4.90); Albumin/Globulin Ratio 1.85 (1.60-3.17); Anion Gap 7.7 mmol/L (4.00-12.00); BUN/Creat Ratio 23.04 Ratio (12.00-20.00); Calcium 9.7 mg/dL (8.7-10.3); Carbon Dioxide 18.3 mmol/L (21.6-31.8); Magnesium 1.6 mg/dL (1.5-2.4); Non-African American GFR(CKD) 26.6 (60.0-200.0); Potassium 4.9 mmol/L (3.5-5.5); Total Bilirubin 0.2 mg/dL (0.2-1.2); Total Protein 5.7 g/dL (6.2-8.2)
[2021-01-06 11:50] LABS: Basophils # (A) 0.03 X 10*3/uL (0.00-0.10); Basophils % (A) 0.5 %; Eosinophils # (A) 0.22 X 10*3/uL (0.04-0.35); Eosinophils % (A) 3.6 %; HCT 27.7 % (39.6-50.0); HGB 8.6 g/dL (13.0-17.0); Lymphocytes # (A) 0.96 X 10*3/uL (0.90-5.00); Lymphocytes % (A) 15.5 %; MCH 32.5 pg (27.0-32.0); MCV 104.5 fL (80.0-97.0); Mean Platelet Volume 9.7 fL (9.5-12.2); Monocytes # (A) 0.37 X 10*3/uL (0.20-1.00); Neutrophils # (A) 4.57 X 10*3/uL (1.80-7.70); Neutrophils % (A) 73.8 %; Platelet Count 118 X 10*3/uL (140-440); RBC 2.65 X 10*6/uL (4.40-5.60); RDW 15.9 % (11.5-14.5); WBC 6.19 X 10*3/uL (4.50-10.00)
[2021-01-06] MEDS: ISOSORBIDE MONONITRATE ER 60 MG TAB.ER.24H PO SCH (13:28)
[2021-01-06] MEDS: DOXAZOSIN 2 MG TAB PO SCH (13:28)
--- NOTE | 2021-01-06 13:39 | P.DS ---
Providers Date of admission: 01/03/21 17:05 Expected date of discharge: 01/06/21 Attending physician: Luciana Bianchi Consults: 01/04/21 10:00 Consult Physician Routine Consulting Provider: Margie Rebolledo Consult Reason/Comments: acute kidney injury Do you want consulting provider notified?: Yes 01/04/21 12:55 Consult Physician Routine Consulting Provider: Jose Glover Consult Reason/Comments: syncope Do you want consulting provider notified?: Yes 01/04/21 12:57 Consult Physician Routine Consulting Provider: Susan Murphy Consult Reason/Comments: syncope Do you want consulting provider notified?: Yes Primary care physician: Lucianamisael Bianchi [facility] Course: Diagnosis on discharge: Episodes of syncope, with loss of consciousness for several minutes per patient's Fall with head trauma no evidence of intracranial bleeding Acute on chronic kidney failure Hyperkalemia on presentation Underlying history of hypertension Underlying history of hypothyroidism Underlying history of hyperlipidemia Underlying history of gout Hospital course: Juarez Haider is a 75-year-old male who presented to [facility] after having a syncopal episode at home. Details are obtained from his at the bedside she stated that patient was sitting on a chair, bending forward, his thought that he was sleeping subsequently he fell forward to the floor, his was able to arouse him for few seconds and then he was unconscious for several minutes, his called EMS and patient was brought into emergency room. Patient was evaluated in the emergency room vital examination on presentation revealed a temperature of 97.5 pulse 61 respiration 18 blood pressure 135/80 pulse ox 100% on 2 L nasal cannula laboratory data reveals a white blood count of 5.4 hemoglobin 9.4 platelet count 125 INR was 2.3 sodium 141 potassium 5.0 BUN 81 creatinine 3.7 computed tomography scan of the brain revealed no acute intracranial process no evidence of intracranial bleeding, computed tomography scan of the cervical spine did not reveal any acute osseous abnormality there was evidence of previous surgery with anterior fusion chest x-ray revealed no active cardiopulmonary disease and EKG revealed sinus rhythm with first-degree AV block otherwise normal EKG. Patient was admitted to telemetry floor for further evaluation and treatment. On 1Patient was seen and examined on the medical floor, he is alert and oriented x 3 in no distress, he denies any complaints there is no fever or chills no headache or dizziness no chest pain no shortness of breath no palpitation no cough no nausea or vomiting no abdominal pain no diarrhea no blood in the stools no burning with urination no frequency or urgency and no hematuria, at this time will obtain echocardiogram and carotid Doppler will consult cardiology and neurology in regard to syncope Will consult nephrology in regard to acute on chronic renal failure will follow closely will recheck labs in a.m. On 01/05/2021 patient is alert and oriented 3 resting comfortably in bed. at bedside. Patient reports he feels significantly improved. Awaiting labs. EEG has been ordered per neurology. 2-D echo pending. This time patient denies chest pain or shortness of breath. Patient denies nausea vomiting or diarrhea. Patient denies any urinary burning or frequency On 01/06/2021 patient was seen and examined on the medical floor he is alert and oriented 3 in no apparent distress he denies any complaints at this time there is no fever or chills no headache or dizziness no chest pain no shortness of breath no cough no nausea or vomiting no abdominal pain no diarrhea and no urinary symptoms. Patient is able to ambulate without difficulty. He is very eager to go home. Recommendation by nephrology to continue IV fluid at 50 mL an hour was discussed with patient however, he did not want to stay any longer in the hospital, at the time of discharge Vasotec was discontinued Lasix dose was decreased to 40 mg once daily instead of twice daily and sodium bicarb 650 mg by mouth twice daily was added to his medication regimen. Patient will be followed in our office in 2-3 days for further evaluation and treatment. He was counseled to return to emergency room if having any symptoms of dizziness loss of consciousness chest pain or shortness of breath. Patient Condition at Discharge: Serious Plan - Discharge Summary Discharge Rx Participant: No New Discharge Prescriptions: New Furosemide [Lasix] 40 mg PO DAILY 90 Days #90 tablet Sodium Bicarbonate Tab 650 mg PO BID tab Continue Nitroglycerin Sl Tabs [Nitrostat] 0.4 mg SUBLINGUAL Q5M PRN PRN Reason: Chest Pain Docusate [Colace] 800 mg PO HS@2300 lamoTRIgine [LaMICtal] 100 mg PO BID@0800,1800 Metoclopramide [Reglan] 5 mg PO AC-SUPPER Multivitamins, Thera [Multivitamin (formulary)] 1 tab PO HS@2300 Mirtazapine 60 mg PO HS@2300 allopurinoL [Zyloprim] 100 mg PO BID@0800,1800 Ergocalciferol [Vitamin D2 (DRISDOL)] 50,000 unit PO Q30D Doxazosin [Cardura] 2 mg PO DAILY@1300 Omeprazole [PriLOSEC] 20 mg PO BID@0800,2300 Levothyroxine Sodium [Synthroid] 25 mcg PO DAILY@0800 Digoxin [Lanoxin] 125 mcg PO DAILY@0800 Isosorbide Mononitrate [Imdur] 120 mg PO DAILY@1300 Epoetin Angel [Procrit] 20,000 unit SQ Q7D Propranolol [Inderal] 20 mg PO TID@0800,1300,1800 Ezetimibe [Zetia] 10 mg PO DAILY@1300 calcitrioL [Rocaltrol] 0.5 mcg PO FR@1500 rOPINIRole HCL [Requip] 1 mg PO BID@1800,2300 Aspirin EC [Ecotrin Low Dose] 81 mg PO HS@2300 Warfarin [Coumadin] 5 mg PO HS@1800 Niacin [Slo-Niacin] 500 mg PO HS@1800 Metoprolol Tartrate [Lopressor] 50 mg PO BID@1800,2300 Sky[place]-3 Fatty Acids [Skyforest-3] 1,000 mg PO BID@0800,1800 Albuterol Sulfate [Ventolin HFA] 1 puff INHALATION RT-QID PRN PRN Reason: Shortness Of Breath ALPRAZolam [Xanax] 0.25 mg PO QID@08,13,18,23 Mometasone/Formoterol [Dulera 200 Mcg-5 Mcg Inhaler] 1 puff PO RT-BID amLODIPine [Norvasc] 5 mg PO HS@2300 lamoTRIgine [LaMICtal] 200 mg PO HS@2300 Discontinued Furosemide [Lasix] 40 mg PO BID@0800,1800 Enalapril Maleate [Vasotec] 2.5 mg PO HS@2300 Discharge Medication List Digoxin [Lanoxin] 125 mcg PO DAILY@0800 08/05/14 [History] Docusate [Colace] 800 mg PO HS@2300 08/05/14 [History] Doxazosin [Cardura] 2 mg PO DAILY@1300 08/05/14 [History] Ergocalciferol [Vitamin D2 (DRISDOL)] 50,000 unit PO Q30D 08/05/14 [History] Levothyroxine Sodium [Synthroid] 25 mcg PO DAILY@0800 08/05/14 [History] Metoclopramide [Reglan] 5 mg PO AC-SUPPER 08/05/14 [History] Mirtazapine 60 mg PO HS@2300 08/05/14 [History] Multivitamins, Thera [Multivitamin (formulary)] 1 tab PO HS@2300 08/05/14 [History] Nitroglycerin Sl Tabs [Nitrostat] 0.4 mg SUBLINGUAL Q5M PRN 08/05/14 [History] Omeprazole [PriLOSEC] 20 mg PO BID@0800,2300 08/05/14 [History] allopurinoL [Zyloprim] 100 mg PO BID@0800,1800 08/05/14 [History] lamoTRIgine [LaMICtal] 100 mg PO BID@0800,1800 08/05/14 [History] Isosorbide Mononitrate [Imdur] 120 mg PO DAILY@1300 04/24/16 [History] Epoetin Angel [Procrit] 20,000 unit SQ Q7D 09/29/17 [History] Propranolol [Inderal] 20 mg PO TID@0800,1300,1800 02/28/19 [History] Aspirin EC [Ecotrin Low Dose] 81 mg PO HS@2300 06/13/20 [History] Ezetimibe [Zetia] 10 mg PO DAILY@1300 06/13/20 [History] Metoprolol Tartrate [Lopressor] 50 mg PO BID@1800,2300 06/13/20 [History] Niacin [Slo-Niacin] 500 mg PO HS@1800 06/13/20 [History] Skyforest-3 Fatty Acids [Sky[place]-3] 1,000 mg PO BID@0800,1800 06/13/20 [History] Warfarin [Coumadin] 5 mg PO HS@1800 06/13/20 [History] calcitrioL [Rocaltrol] 0.5 mcg PO FR@1500 06/13/20 [History] rOPINIRole HCL [Requip] 1 mg PO BID@1800,2300 06/13/20 [History] ALPRAZolam [Xanax] 0.25 mg PO QID@08,13,18,23 01/03/21 [History] Albuterol Sulfate [Ventolin HFA] 1 puff INHALATION RT-QID PRN 01/03/21 [History] Mometasone/Formoterol [Dulera 200 Mcg-5 Mcg Inhaler] 1 puff PO RT-BID 01/03/21 [History] amLODIPine [Norvasc] 5 mg PO HS@2300 01/03/21 [History] lamoTRIgine [LaMICtal] 200 mg PO HS@2300 01/03/21 [History] Furosemide [Lasix] 40 mg PO DAILY 90 Days #90 tablet 01/06/21 [Rx] Sodium Bicarbonate Tab 650 mg PO BID tab 01/06/21 [Rx] Follow up Appointment(s)/Referral(s): Luciana Bianchi MD [Primary Care Provider] - 1-2 days
[2021-01-06 14:08] VITALS: BP 147/77; PULSE 72; TEMP 98.3
[2021-01-07] MEDS ORDERED: DARBEPOETIN ALFA 60 MCG/0.3 ML SYRINGE SQ SCH (09:00)
== END 2021-01-06 14:32 | disposition home or self-care (01) | DRG 683 ==
LOC: EC 15:17 → 4SSUR 17:05
PROVIDERS: ADMIT Internal Medicine; ATTEND Internal Medicine
DX: N17.9 Acute kidney failure, unspecified (principal); I13.0 Hypertensive heart and chronic kidney disease with heart failure and stage 1 through stage 4 chronic kidney disease, or unspecified chronic kidney disease; N18.4 Chronic kidney disease, stage 4 (severe); D63.1 Anemia in chronic kidney disease; R51.9 Headache, unspecified; E11.22 Type 2 diabetes mellitus with diabetic chronic kidney disease; S09.90XA Unspecified injury of head, initial encounter; W07.XXXA Fall from chair, initial encounter; I50.9 Heart failure, unspecified; G62.9 Polyneuropathy, unspecified; G25.81 Restless legs syndrome; Z79.899 Other long term (current) drug therapy; Z79.890 Hormone replacement therapy; Z79.01 Long term (current) use of anticoagulants; E78.5 Hyperlipidemia, unspecified; I25.10 Atherosclerotic heart disease of native coronary artery without angina pectoris; Y92.009 Unspecified place in unspecified non-institutional (private) residence as the place of occurrence of the external cause; J45.909 Unspecified asthma, uncomplicated; Z86.711 Personal history of pulmonary embolism; N28.9 Disorder of kidney and ureter, unspecified; Z89.511 Acquired absence of right leg below knee; Z96.652 Presence of left artificial knee joint; H26.9 Unspecified cataract; Z20.822 Contact with and (suspected) exposure to COVID-19; L98.0 Pyogenic granuloma; R55 Syncope and collapse; E03.9 Hypothyroidism, unspecified; E86.0 Dehydration; E86.1 Hypovolemia; J43.9 Emphysema, unspecified; M89.8X9 Other specified disorders of bone, unspecified site; Z79.51 Long term (current) use of inhaled steroids; Z86.718 Personal history of other venous thrombosis and embolism; Z98.1 Arthrodesis status
CPT/HCPCS: 36415; 70450; 71045; 72125; 76770; 80053; 80162; 80306; 80320; 81003; 82140; 82607; 82728; 82746; 83540; 83550; 83735; 83921; 84443; 84484; 85025; 85610; 85730; 86850; 86900; 86901; 87635; 93005; 93306; 93880; 94640; 96360; 99285

== ENCOUNTER 2021-02-22 11:25 | Emergency (ER) | payer OTHER ==
[2021-02-22 11:37] VITALS: TEMP 98.9
[2021-02-22] MEDS ORDERED: Acetaminophen-Codeine 300-30mg TAB PO STA (11:54)
[2021-02-22 12:19] LABS: Anisocytosis Slight; Basophils % (A) 0 %; Eosinophils # (A) 0.2 k/uL (0-0.7); Eosinophils % (A) 3 %; HCT 31.8 % (39.0-53.0); HGB 10.6 gm/dL (13.0-17.5); Lymphocytes # (A) 1.1 k/uL (1.0-4.8); Lymphocytes % (A) 15 %; MCH 32.7 pg (25.0-35.0); MCHC 33.3 g/dL (31.0-37.0); MCV 98.3 fL (80.0-100.0); Macrocytosis Slight; Mean Platelet Volume 8.3; Monocytes # (A) 0.4 k/uL (0-1.0); Monocytes % (A) 6 %; Neutrophils # (A) 5.2 k/uL (1.3-7.7); Neutrophils % (A) 73 %; Platelet Count 135 k/uL (150-450); Poikilocytosis Slight; RBC 3.24 m/uL (4.30-5.90); RDW 16.3 % (11.5-15.5); WBC 7.1 k/uL (3.8-10.6)
[2021-02-22 12:50] LABS: Albumin 3.8 g/dL (3.5-5.0); Potassium 4.7 mmol/L (3.5-5.1); Total Bilirubin 0.4 mg/dL (0.2-1.3); Total Protein 6.3 g/dL (6.3-8.2)
--- NOTE | 2021-02-22 12:51 | US ---
EXAMINATION TYPE: US venous doppler duplex LE LT DATE OF EXAM: 02/22/2021 12:42 PM COMPARISON: NONE CLINICAL HISTORY: swelling, tenderness. swollen, red, hot calf, no h/o DVT but has h/o PE's a few yea rs ago and patient is still on Coumadin SIDE PERFORMED: Left TECHNIQUE: The lower extremity deep venous system is examined utilizing real time linear array sonog nicola with graded compression, doppler sonography and color-flow sonography. VESSELS IMAGED: Common Femoral Vein Deep Femoral Vein Greater Saphenous Vein * Femoral Vein Popliteal Vein Small Saphenous Vein * Proximal Calf Veins (* superficial vessels) Left Leg: Negative for DVT IMPRESSION: 1. Left lower extremity ultrasound negative for deep venous thrombosis
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
[2021-02-22 13:54] VITALS: BP 150/77; PULSE 63; RESP 16
== END 2021-02-22 13:53 | disposition home or self-care (01) ==
LOC: EC 11:25
DX: R60.0 Localized edema (principal); E11.22 Type 2 diabetes mellitus with diabetic chronic kidney disease; E11.36 Type 2 diabetes mellitus with diabetic cataract; E11.40 Type 2 diabetes mellitus with diabetic neuropathy, unspecified; I13.0 Hypertensive heart and chronic kidney disease with heart failure and stage 1 through stage 4 chronic kidney disease, or unspecified chronic kidney disease; I25.10 Atherosclerotic heart disease of native coronary artery without angina pectoris; I50.9 Heart failure, unspecified; J44.9 Chronic obstructive pulmonary disease, unspecified; H26.9 Unspecified cataract; N18.4 Chronic kidney disease, stage 4 (severe); Z79.01 Long term (current) use of anticoagulants; Z79.51 Long term (current) use of inhaled steroids; Z79.82 Long term (current) use of aspirin; Z86.711 Personal history of pulmonary embolism; Z88.8 Allergy status to other drugs, medicaments and biological substances
CPT/HCPCS: 36415; 80053; 85025; 99284

== ENCOUNTER → 2021-12-20 | Outpatient (CLI) | payer OTHER ==
--- NOTE | 2021-12-20 22:22 | US ---
EXAMINATION TYPE: US kidneys/renal and bladder DATE OF EXAM: 12/20/2021 COMPARISON: Renal ultrasound January 04, 2021 CLINICAL HISTORY: N18.4 Chronic kidney disease Stage 4. Chronic kidney disease Stage 4 EXAM MEASUREMENTS: Right Kidney: 10.7 x 4.4 x 4.5 cm Left Kidney: 11.1 x 5.1 x 4.9 cm Right Kidney: No hydronephrosis, multiple cysts noted largest in mid kandis. approx. 1.0 x 0.9 x 1.2 cm Left Kidney: No hydronephrosis seen, multiple cysts seen, largest seen in inf pole kandis. approx. 1.0 x 1.2 x 1.4 cm Bladder: wnl as seen, not fully distended Cortical thinning in the right kidney. Incidental small scattered benign thin-walled cysts throughout both kidneys. No hydronephrosis is seen bilaterally. The urinary bladder is not greatly distended and is thus suboptimally evaluated. Bilateral ureteral jets are not seen. IMPRESSION: Evidence of chronic medical renal disease. No hydronephrosis seen bilaterally.
== END | disposition home or self-care (01) ==
LOC: RADUSWWP 16:38
PROVIDERS: ATTEND Internal Medicine Nephrology
DX: N18.4 Chronic kidney disease, stage 4 (severe) (principal)
CPT/HCPCS: 76770

== ENCOUNTER 2022-02-22 14:49 | Observation (INO) | payer OTHER, MEDICARE ==
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
--- NOTE | 2022-02-22 16:09 | XR ---
EXAMINATION TYPE: XR chest 2V DATE OF EXAM: 02/22/2022 3:56 PM COMPARISON: Chest radiographs from 01/03/2021. TECHNIQUE: XR chest 2V Frontal and lateral views of the chest. CLINICAL INDICATION:Male, 76 years old with history of renal insufficiency, hyperkalemia; FINDINGS: Lungs/Pleura: There is no evidence of pleural effusion, focal consolidation, or pneumothorax. Pulmonary vascularity: Unremarkable. Heart/mediastinum: Cardiomediastinal silhouette is unremarkable. Musculoskeletal: Multiple level degenerative disc disease changes seen throughout the spine. No acute osseous abnormality. Cervical fusion hardware demonstrated. IMPRESSION: No acute cardiopulmonary disease/process.
[2022-02-22 16:51] LABS: Anisocytosis Slight; Basophils % (A) 1 %; Eosinophils # (A) 0.2 k/uL (0-0.7); Eosinophils % (A) 4 %; HCT 25.8 % (39.0-53.0); HGB 8.1 gm/dL (13.0-17.5); Hypochromasia Moderate; Lymphocytes # (A) 0.9 k/uL (1.0-4.8); Lymphocytes % (A) 17 %; MCH 31.4 pg (25.0-35.0); MCHC 31.3 g/dL (31.0-37.0); MCV 100.4 fL (80.0-100.0); Macrocytosis Slight; Mean Platelet Volume 7.8; Monocytes # (A) 0.3 k/uL (0-1.0); Monocytes % (A) 6 %; Neutrophils # (A) 3.6 k/uL (1.3-7.7); Neutrophils % (A) 70 %; Platelet Count 119 k/uL (150-450); Poikilocytosis Slight; RBC 2.57 m/uL (4.30-5.90); RDW 17.4 % (11.5-15.5); WBC 5.2 k/uL (3.8-10.6)
[2022-02-22 16:59] LABS: INR 1.6 (<1.2); Partial Thromboplastin Time 31.2 sec (22.0-30.0); Prothrombin Time 16.5 sec (9.0-12.0)
[2022-02-22 17:06] LABS: Albumin 3.2 g/dL (3.5-5.0); Calcium 8.1 mg/dL (8.4-10.2); Phosphorus 3.2 mg/dL (2.5-4.5); Potassium 5.8 mmol/L (3.5-5.1); Total Bilirubin 0.3 mg/dL (0.2-1.3); Total Protein 5.6 g/dL (6.3-8.2)
[2022-02-22] MEDS ORDERED: SODIUM POLYSTYRENE SULFONATE 15 GM/60 ML BOTTLE PO STA (17:37)
[2022-02-22] MEDS ORDERED: SODIUM BICARB 8.4% 50 ML SYR (1 MEQ/ML) IV STA (17:47)
[2022-02-22] MEDS ORDERED: DEXTROSE 50% SYRINGE 50 ML IVP STA (17:48)
[2022-02-22] MEDS ORDERED: INSULIN REGULAR 100 UNIT/ML VIAL (IV) IV STA (17:48)
[2022-02-22] MEDS ORDERED: FUROSEMIDE 10 MG/ML 10 ML VIAL IV STA (17:54)
[2022-02-22] MEDS: SODIUM ZIRCONIUM CYCLOSILICATE 10 GM PACKET PO SCH ×2 (18:25→22:23)
--- NOTE | 2022-02-22 20:29 | US ---
EXAMINATION TYPE: US kidneys/renal and bladder DATE OF EXAM: 02/22/2022 COMPARISON: US 2021 CLINICAL HISTORY: Renal insufficiency, hyperkalemia. EXAM MEASUREMENTS: Right Kidney: 10.0 x 4.3 x 5.6 cm Left Kidney: 9.8 x 5.5 x 4.4 cm Difficult and limited study due to exam done with patient sitting up in wheelchair, could not lay d own Right Kidney: cortical thinning, multiple small cysts with largest measuring 1.2cm Left Kidney: cortical thinning, multiple small cysts with largest measuring 0.9cm Bladder: not imaged due to limitations listed above IMPRESSION: 1. No evidence for obstructive uropathy. 2. Medical renal disease with cortical thinning bilaterally.
[2022-02-23 07:41] VITALS: BP 137/62; PULSE 69; TEMP 97.7
[2022-02-23 09:15] LABS: African American GFR (CKD) 25.2 (60.0-200.0); Anion Gap 6.5 mmol/L (10.00-18.00); BUN/Creat Ratio 23.67 Ratio (12.00-20.00); Blood Urea Nitrogen 63.9 mg/dL (9.0-27.0); Calcium 8.1 mg/dL (8.7-10.3); Carbon Dioxide 25.5 mmol/L (20.0-27.5); Non-African American GFR(CKD) 21.8 (60.0-200.0)
[2022-02-23] MEDS ORDERED: NITROGLYCERIN SL TABS 0.4 MG TAB SUBLINGUAL PRN (09:16)
[2022-02-23] MEDS ORDERED: TRIAMCINOLONE ACET 0.1% OINTMENT 15 GM TUBE TOPICAL PRN (09:16)
[2022-02-23] MEDS ORDERED: ALBUTEROL NEBULIZED 2.5 MG/3 ML INHALATION PRN (09:16)
[2022-02-23 09:18] LABS: Basophils # (A) 0.02 X 10*3/uL (0.00-0.10); Basophils % (A) 0.4 %; Eosinophils # (A) 0.15 X 10*3/uL (0.04-0.35); HCT 24.5 % (39.6-50.0); HGB 7.3 g/dL (13.0-17.0); Immature Grans, Automated 0.2 %; Lymphocytes # (A) 0.93 X 10*3/uL (0.90-5.00); Lymphocytes % (A) 18.5 %; MCH 30.9 pg (27.0-32.0); MCHC 29.8 g/dL (32.0-37.0); MCV 103.8 fL (80.0-97.0); Mean Platelet Volume 9.5 fL (9.5-12.2); NRBC Per 100 WBC 0 /100 WBCS (0.0-0.0); Neutrophils # (A) 3.52 X 10*3/uL (1.80-7.70); Neutrophils % (A) 69.9 %; Platelet Count 112 X 10*3/uL (140-440); RBC 2.36 X 10*6/uL (4.40-5.60); RDW 17.5 % (11.5-14.5); WBC 5.03 X 10*3/uL (4.50-10.00)
[2022-02-23 10:15] VITALS: RESP 16
[2022-02-23] MEDS ORDERED: PANTOPRAZOLE 40 MG TABLET PO SCH ×2 (11:00→23:00)
[2022-02-23] MEDS ORDERED: CALCIUM CARBONATE 500 MG CHEWABLE PO PRN (11:01)
[2022-02-23] MEDS: SODIUM ZIRCONIUM CYCLOSILICATE 10 GM PACKET PO SCH (11:17)
[2022-02-23] MEDS ORDERED: ISOSORBIDE MONONITRATE ER 60 MG TAB.ER.24H PO SCH (13:00)
[2022-02-23] MEDS ORDERED: EZETIMIBE 10 MG TAB PO SCH (13:00)
[2022-02-23] MEDS ORDERED: ALPRAZolam 0.25 MG TAB PO SCH (13:00)
[2022-02-23] MEDS ORDERED: DOXAZOSIN 2 MG TAB PO SCH (13:00)
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
--- NOTE | 2022-02-23 15:16 | HP ---
HISTORY AND PHYSICAL This is a combined history and physical and discharge summary. CHIEF COMPLAINT: Hyperkalemia and renal failure. HISTORY OF PRESENT ILLNESS: This 76-year-old gentleman with a past medical history of asthma, CAD, heart failure, COPD, multiple medical problems, followed by Dr. Bianchi in the outpatient setting, was admitted with hyperkalemia as well as renal failure. Potassium 5.8. Patient received Lokelma and potassium is 5 today. Patient is feeling much better. Patient is keen on going home. Nephrology evaluation is in progress at this time. There is no history of any fever, rigor or chills. PAST MEDICAL HISTORY: Reviewed. It includes asthma, CHF, COPD. HOME MEDICATIONS: Again reviewed. They include enalapril, Coumadin. Doses and the rest of the medications are reviewed. ALLERGIES: Reviewed. IRON. FAMILY HISTORY: No history of heart disease or strokes in the family. SOCIAL HISTORY: No history of smoking or alcohol. REVIEW OF SYSTEMS: Fourteen-point review of systems negative except as mentioned earlier. PHYSICAL EXAMINATION: Pulse 69, blood pressure 130/62, respiration 18. HEENT: Conjunctivae normal. NECK: No jugular venous distention. CARDIOVASCULAR: S1, S2 muffled. RESPIRATION: Breath sounds diminished at the bases. No rhonchi. No crackles. ABDOMEN: Soft, nontender. LEGS: No edema. No swelling. NERVOUS SYSTEM: No focal deficit. SKIN: No ulcer, rash, bleeding. JOINTS: No active deforming arthropathy. LABS: Noted. Hemoglobin 8.17. Other labs reviewed. ASSESSMENT: 1. Hyperkalemia. 2. Chronic kidney disease. 3. History of asthma. 4. History of coronary artery disease. 5. History of chronic obstructive pulmonary disease. 6. Multiple medical issues. RECOMMENDATIONS AND DISCUSSION: This 76-year-old gentleman who presented with multiple medical issues has significant hyperkalemia. Patient received Lokelma. Potassium is improved at this time. Nephrology has cleared the patient for discharge. I would recommend the patient to be discharged home with a low-potassium diet and to avoid enalapril. Follow with Dr. Bianchi in the outpatient setting and follow-up CBC, BMP in the outpatient setting. Please refer to the medication reconciliation sheet for a list of medications. As mentioned earlier, hold enalapril for now. MMODL / IJN: [id number] /
[2022-02-23] MEDS ORDERED: METOCLOPRAMIDE 10 MG TAB PO SCH (17:30)
[2022-02-23] MEDS ORDERED: METOPROLOL TARTRATE 50 MG TAB PO SCH (18:00)
[2022-02-23] MEDS ORDERED: NIACIN TR 500 MG CAPLET PO SCH (18:00)
[2022-02-23] MEDS ORDERED: lamoTRIgine 100 MG TAB PO SCH ×2 (18:00→23:00)
[2022-02-23] MEDS ORDERED: SYMBICORT 160-4.5 MCG INHALER INHALATION SCH (20:00)
[2022-02-23] MEDS ORDERED: ASPIRIN 81 MG PO SCH (23:00)
[2022-02-23] MEDS ORDERED: DOCUSATE 100 MG CAP PO SCH (23:00)
[2022-02-23] MEDS ORDERED: MULTIVITAMINS, THERA 1 EACH TAB PO SCH (23:00)
[2022-02-23] MEDS ORDERED: SODIUM BICARBONATE TAB 650 MG TAB PO SCH (23:00)
[2022-02-23] MEDS ORDERED: MIRTAZAPINE 15 MG TAB PO SCH (23:00)
[2022-02-24] MEDS ORDERED: LEVOTHYROXINE 25 MCG TAB PO SCH (08:00)
[2022-02-24] MEDS ORDERED: lisinopriL 5 MG TAB PO SCH (08:00)
[2022-02-24] MEDS ORDERED: DIGOXIN 125 MCG TAB PO SCH (08:00)
[2022-03-01] MEDS ORDERED: ERGOCALCIFEROL 1,250 MCG (50,000 IU) CAPSULE PO SCH (09:00)
[2022-03-01] MEDS ORDERED: DARBEPOETIN ALFA 60 MCG/0.3 ML SYRINGE SQ SCH (09:00)
== END 2022-02-23 13:19 | disposition home or self-care (01) ==
LOC: EC 14:49 → 6NMEDSUR 18:06
PROVIDERS: ADMIT Hospitalist; ATTEND Hospitalist
DX: E87.5 Hyperkalemia (principal); I13.0 Hypertensive heart and chronic kidney disease with heart failure and stage 1 through stage 4 chronic kidney disease, or unspecified chronic kidney disease; N18.4 Chronic kidney disease, stage 4 (severe); E11.22 Type 2 diabetes mellitus with diabetic chronic kidney disease; I50.9 Heart failure, unspecified; I25.10 Atherosclerotic heart disease of native coronary artery without angina pectoris; J44.9 Chronic obstructive pulmonary disease, unspecified; I44.0 Atrioventricular block, first degree; M89.8X9 Other specified disorders of bone, unspecified site; D63.1 Anemia in chronic kidney disease; E78.5 Hyperlipidemia, unspecified; Z79.890 Hormone replacement therapy; Z79.01 Long term (current) use of anticoagulants; Z79.82 Long term (current) use of aspirin; Z79.51 Long term (current) use of inhaled steroids; Z79.899 Other long term (current) drug therapy; Z88.8 Allergy status to other drugs, medicaments and biological substances; Z86.711 Personal history of pulmonary embolism; Z77.29 Contact with and (suspected) exposure to other hazardous substances; Z90.49 Acquired absence of other specified parts of digestive tract; Z96.652 Presence of left artificial knee joint; Z98.1 Arthrodesis status; F43.10 Post-traumatic stress disorder, unspecified; Z89.511 Acquired absence of right leg below knee; Z98.42 Cataract extraction status, left eye; Z98.41 Cataract extraction status, right eye; Z98.890 Other specified postprocedural states
CPT/HCPCS: 96374; 96375; 99285; 36415; 93005; 80053; 80048; 80162; 83735; 84100; 85025 ×2; 85610; 85730; 71046; 76770; G0378 ×2; J1940

== ENCOUNTER → 2022-05-29 | Outpatient (CLI) | payer MEDICARE, OTHER ==
--- NOTE | 2022-05-29 13:54 | US ---
EXAMINATION TYPE: US abdomen comp/pelvis limited DATE OF EXAM: 05/29/2022 COMPARISON: CT 2017 CLINICAL HISTORY: R19.00 Abdominal swelling with vomiting for one year EXAM MEASUREMENTS: Liver Length: 15.6 cm Gallbladder Wall: Surgically absent CBD: 1.1 cm Spleen: 11.0 cm Right Kidney: 10.7 x 4.7 x 4.9 cm Left Kidney: Not visualized Exam severely limited by overlying bowel gas Pancreas: Obscured by bowel gas Liver: Increased attenuation, biliary ductal dilation Gallbladder: Surgically absent CBD: Dilated to 1.1 cm Spleen: Obscured by overlying bowel gas Right Kidney: Thin cortex with echogenic sinus compatible with medical renal disease see on prior. Lateral small anechoic cyst 1.1 x 1.0 x 0.7 cm Left Kidney: Obscured by overlying bowel gas Upper IVC: wnl Abd Aorta: Obscured by overlying bowel gas Bladder: wnl Bilateral Jets Seen Yes Small amount of free fluid visualized at the inferior right lobe of the liver. Urinary bladder adequately distended. Bilateral distal ureter jets are seen. Suboptimal evaluation of pancreas and abdominal aorta due to overlying bowel gas. IVC is seen near the hepatic dome. Visualized liver is heterogeneously hyperechoic without focal mass seen. There is mild central intrah epatic biliary dilatation. There is minimal extrahepatic biliary dilatation. Gallbladder surgically a bsent. Nondiagnostic evaluation of spleen and left kidney due to overlying bowel gas. Right kidney shows no hydronephrosis. Incidental 1.0 cm simple appearing thin-walled cyst marked by technologist. IMPRESSION: Suboptimal study. Advise further investigation with CT and/or MRI imaging to better evalu ate.
== END | disposition home or self-care (01) ==
LOC: RADUSWWP 12:47
PROVIDERS: ATTEND Internal Medicine Nephrology
DX: R19.02 Left upper quadrant abdominal swelling, mass and lump (principal)
CPT/HCPCS: 76700; 76857